=== PATIENT | female | born 1945 | race African-American/Black ===

== ENCOUNTER 2023-10-17 15:48 | Emergency (ER) | payer OTHER, SELFPAY ==
[2023-10-17 15:50] VITALS: BP 128/66
[2023-10-17 16:14] LABS: % Basophils 0.3 % (0-2); % Eosinophils 2.3 % (0-6); % Immature Granulocytes 0.2 % (0-0.5); % Lymphocytes 24.3 % (20.5-51.1); % Monocytes 12.6 % (1.7-9.3); % Neutrophils 60.3 % (42.2-75.2); Absolute Eosinophils 0.2 10^3/uL (0-0.7); Absolute Lymphocytes 2.1 10^3/uL (1.2-3.4); Absolute Monocytes 1.1 10^3/uL (0.1-0.6); Absolute Neutrophils 5.3 10^3/uL (1.4-6.5); Hematocrit 29.2 % (37.0-47.0); Hemoglobin 9.6 g/dL (12.0-16.0); Mean Corp Hgb Conc. 32.9 g/dL (33.0-37.0); Mean Corpuscular Hgb 28.3 pg (27.0-31.0); Mean Corpuscular Volume 86.1 fL (81.0-99.0); Mean Platelet Volume 8.7 fL (7.4-10.4); Nucleated Red Blood Cells % 0 %; Platelet Count 281 10^3/uL (130-400); Red Blood Cell Count 3.39 10^6/uL (4.20-5.40); Red Cell Dist. Width 13.9 % (11.5-14.5); White Blood Cell Count 8.8 10^3/uL (4.8-10.8)
[2023-10-17 16:32] LABS: ALT (SGPT) 20 U/L (0-35); AST (SGOT) 30 U/L (14-36); Albumin 3.7 g/dl (3.5-5.0); Alkaline Phosphatase 92 U/L (38-126); Blood Urea Nitrogen 14 mg/dl (7-17); Calcium 8.4 mg/dl (8.4-10.2); Carbon Dioxide 24 mmol/L (22-30); Chloride 100 mmol/L (98-107); Glucose 111 mg/dl (70-99); Potassium 4.2 mmol/L (3.5-5.1); Sodium 135 mmol/L (135-145); Total Bilirubin 0.4 mg/dl (0.2-1.3); Total Protein 6.4 g/dl (6.3-8.2); eGFR 42.09
--- NOTE | 2023-10-17 18:27 | ED.GENMED ---
History of Present Illness
General
Chief Complaint: Fainting Sensation
Source: patient
Exam Limitations: none
Time Seen by Provider: 10/17/23 17:49
Nursing documentation reviewed up to this point in time: agreed with
Travel History
Have you had any contact with someone who has COVID-19?: No
Do you have any symptoms of coronavirus? Fever > 100 degrees, chills, cough, shortness of breath, sore throat, loss of taste or smell, muscle aches, or headache?: No
History of Present Illness
History of Present Illness:
69-year-old female presents to the ER for evaluation. Patient was brought by EMS. Patient had bilateral knee replacement surgery August 2023 at [facility]. She has been in Physical therapy twice a week since and went to physical therapy
today but did not eat. After therapy she went to [facility] with family while she was getting out of the car at [facility] she felt very hot and while walking around [facility] felt very lightheaded like she was going to pass out. Daughter saw that she
was not feeling well and caught patient prior to patient falling on the ground. Daughter reports patient did not fully lose consciousness she was awake 'but in and out of it .'
patient denies any associated chest pain. She is no cardiac history. She is a diet-controlled diabetic.
She denies any recent illness fever chills.
Patient denies any black stools. She is on Eliquis for bilateral knee replacement.
Family feels that patient was dehydrated and did not eat and with therapy and walk around [facility] had this episode occur.
Patient now feels much better. She has no cardiac history.
She denies any shortness of breath.
Past History
Past History
ED Past Medical History: HTN, Hypercholesterolemia and NIDDM
ED Past Surgical History: Orthopedic (b/l bunionectomy)
Review of Systems
Review of Systems
Allergies reviewed?: Yes
Other source history: family
All Other Systems: ROS reviewed and negative except as documented in HPI and ROS
Constitutional: Reports no symptoms; Denies fever
EENT: Reports no symptoms
Respiratory: Reports no symptoms; Denies trouble breathing
Cardiac: Reports other (near syncope )
ABD/GI: Reports no symptoms; Denies abdominal pain, nausea or vomiting
: Reports no symptoms
Musculoskeletal: Reports no symptoms
Skin: Reports no symptoms
Neurological: Reports no symptoms
Psychiatric: Reports no symptoms
Phy Exam
General Physical Exam
General Presentation: no apparent distress
General age: appears stated age
General Skin: warm and dry
General Habitus: elderly
General Mental: alert
General Hydration: appears well hydrated
Cardiovascular Exam
Cardiovascular Exam: regular rate/rhythm, no murmur and normal peripheral pulses
Pulmonary Exam
Pulmonary Exam: lungs clear and no respiratory distress
Neurological Exam
Neurological Exam: alert and oriented x3
Musculoskeletal Exam
Musculoskeletal Exam: full ROM
Skin Exam
Skin Exam: normal color and warm/dry
Psychiatric Exam
Psychiatric Exam: normal mood/affect
Course
Orders/Labs/Results
Orders:
Orders
10/17/23 15:53
Electrocardiogram (*1) Urgent
Reason for Study: Chest Pain
EKG- Treatment ONCE
10/17/23 16:08
Complete Blood Count/With Diff Urgent
Comprehensive Metabolic Panel Urgent
Abnormal Lab Results
10/17/23
16:08
RBC 3.39 L 10^6/uL
(4.20-5.40)
Hgb 9.6 L g/dL
(12.0-16.0)
Hct 29.2 L %
(37.0-47.0)
MCHC 32.9 L g/dL
(33.0-37.0)
Absolute Monos (auto) 1.1 H 10^3/uL
(0.1-0.6)
Monocytes % 12.6 H %
(1.7-9.3)
Creatinine 1.3 H mg/dL
(0.6-1.0)
Glucose 111 H mg/dl
(70-99)
10/17/23 16:08
10/17/23 16:08
Vital Signs
Initial and Last Documented VS:
Initial Vital Signs
Temp Pulse Resp BP Pulse Ox
98.9 F 70 20 128/66 99
10/17/23 15:50 10/17/23 15:50 10/17/23 15:50 10/17/23 15:50 10/17/23 15:50
Last Documented Vital Signs
Temp Pulse Resp BP Pulse Ox
98.9 F 76 16 124/69 99
10/17/23 15:50 10/17/23 19:43 10/17/23 19:43 10/17/23 19:43 10/17/23 15:50
MDM/Problems Addressed
Differential Diagnosis Includes:
Not limited to near syncope, dehydration
MDM/Problems Addressed:
Patient had near syncopal episode today. Patient did physical therapy today and was walking around [facility] however did not eat and hardly drank today. Patient describes feeling very hot and was aware that she felt lightheaded and was going to
pass out. Family reports she never fully passed out. Patient presents awake alert no acute distress. Patient had blood work done prior to my exam which does show an elevated creatinine 1.3 normal BUN. There are no prior labs.
Patient's hemoglobin is 9.6. She is on Eliquis but denies any black stools. She denies any recent fever chills she is afebrile with a normal white count.
Patient reports she is feeling much better here she had no complaints of chest pain shortness of breath she is in no acute distress. She is on blood thinners status post knee replacement late August/September. She denies any black stools as
documented. I did discuss rectal exam but she declined. She has been eating and drinking here in the ER and feels well after go home. She ambulated with her walker steady. Symptoms are likely from not eating and drinking. Patient was given a
copy of her labs including low hemoglobin mildly elevated creatinine with instructions to follow-up PCP.
Chronic conditions affecting care:
Recent knee replacement end of presently in physical therapy twice a week.
*Pulse Oximetry
Patient hypoxic: no
*EKG
Interpreted by ED Provider?: Yes
Interpretation: normal
Comparison EKG: no comparison EKG present
Heart Rate: 67
Rate: normal
Rhythm: sinus
Ischemia: no ischemia
*Critical Care Note
Total Time (30-74mins, 75-104mins- exclusive of procedures): Not Applicable
ED Attending Note
-
Portions of this chart may have been created with voice recognition software.� Occasional wrong word or��sound alike� substitutions may have occurred due to the inherent limitations of voice recognition software.
Discharge Plan
Departure
Patient Disposition: Home (Routine Discharge)
Date of Disposition: 10/17/23
Time of Disposition: 19:33
Patient with high blood pressure during this ER visit?: Yes
Condition: Fair
Covid-19: Not Applicable
Discharge Problem:
Near syncope
Instructions: Near Fainting (DC)
Referrals:
Corrie Patterson MD [Family Provider] -
Activity Restrictions/Additional Instructions:
stay well-hydrated. Follow-up with your family doctor in the next several days for reevaluation.
Follow-up for reevaluation of your labs. You are mildly anemic with a hemoglobin of 9.6 and your kidney function/creatinine was minimally elevated at 1.3. Please follow-up with your family doctor for this and for repeat labs. Return if any
worsening of symptoms
Interventions
Interventions:
*Risk Screen - Suicide Last Done: 10/17/23 15:50
*General Assessment Last Done: 10/17/23 15:50
*Neglect/Abuse Screening Last Done: 10/17/23 15:50
ED- Cardiac Assessment Last Done: 10/17/23 18:20
ED- Neurological Assessment Last Done: 10/17/23 18:20
Discharge Date and Time
Print Language: NORWEGIAN
[2023-10-17 19:43] VITALS: BP 124/69
== END 2023-10-17 20:08 | disposition home or self-care (01) ==
LOC: EMR 15:48
PROVIDERS: Emergency Medicine; EMERGENCY PHYSICIAN Emergency Medicine; FAMILY PHYSICIAN Internal Medicine
DX: R55 Syncope and collapse (principal); I10 Essential (primary) hypertension; E78.00 Pure hypercholesterolemia, unspecified; E11.9 Type 2 diabetes mellitus without complications; M19.90 Unspecified osteoarthritis, unspecified site; Z96.653 Presence of artificial knee joint, bilateral; Z79.01 Long term (current) use of anticoagulants; Z88.6 Allergy status to analgesic agent; Z91.040 Latex allergy status
CPT/HCPCS: 99283; 80053; 85025; 93005

== ENCOUNTER 2024-03-10 12:22 | Emergency (ER) | payer OTHER, SELFPAY ==
[2024-03-10] VITALS (8 sets, daily range): BP systolic 110–135; BP diastolic 60–74
--- NOTE | 2024-03-10 12:38 | ED.PDOC.TRB ---
ED Provider Triage
<Angela Mendez PA-C - Last Filed: 03/10/24 12:40>
-
A medical screening examination has been initiated by a qualified medical provider. Based on the assessment performed at this time, it has been determined that an emergent medical condition may exist and the patient has been informed that further
medical evaluation and possible additional diagnostic testing may be needed.
HPI: This is a medical evaluation conducted in person to initiate diagnostic evaluation and provide initial therapeutics. Please see further documentation by the treating clinician.
GENERAL: Alert , in no apparent distress
EYE: No visual abnormalities.
NECK: Trachea midline
ENT: No visible abnormalities.
LUNGS: No acute respiratory distress
lungs sound clear
no cough
mild tachypnea
NEUROLOGICAL: Alert and oriented
SKIN: Skin intact. No visible changes.
MUSCULOSKELETAL: Moving extremities normally
PSYCH: Normal and appropriate interaction.
78-year-old female with no history of cardiac disease woke up yesterday feeling fatigued and then began feeling short of breath late last night and then woke up this morning feeling more short of breath. Patient has more exertional dyspnea today
and feels little chest tightness. Patient has no pleuritic chest pain, no leg swelling, no fever or cough.
On very brief screening exam her lungs sound clear but she does appear slightly winded after walking. She has no edema. Will start with screening labs and an EKG which was reviewed and shows no ischemia. Defer additional testing to provider
<EARLINE Sharma - Last Filed: 03/11/24 19:42>
-
A medical screening examination has been initiated by a qualified medical provider. Based on the assessment performed at this time, it has been determined that an emergent medical condition may exist and the patient has been informed that further
medical evaluation and possible additional diagnostic testing may be needed.
HPI: This is a medical evaluation conducted in person to initiate diagnostic evaluation and provide initial therapeutics. Please see further documentation by the treating clinician.
GENERAL: Alert , in no apparent distress
EYE: No visual abnormalities.
NECK: Trachea midline
ENT: No visible abnormalities.
LUNGS: No acute respiratory distress
lungs sound clear
no cough
mild tachypnea
NEUROLOGICAL: Alert and oriented
SKIN: Skin intact. No visible changes.
MUSCULOSKELETAL: Moving extremities normally
PSYCH: Normal and appropriate interaction.
78-year-old female with no history of cardiac disease woke up yesterday feeling fatigued and then began feeling short of breath late last night and then woke up this morning feeling more short of breath. Patient has more exertional dyspnea today
and feels little chest tightness. Patient has no pleuritic chest pain, no leg swelling, no fever or cough.
On very brief screening exam her lungs sound clear but she does appear slightly winded after walking. She has no edema. Will start with screening labs and an EKG which was reviewed and shows no ischemia. Defer additional testing to provider
I evaluated this patient and documented full emergency department evaluation . See chart provided Nhung Ramachandran NP
[2024-03-10 13:05] LABS: % Basophils 0.5 % (0-2); % Immature Granulocytes 0.3 % (0-0.5); % Lymphocytes 29.5 % (20.5-51.1); % Monocytes 10.3 % (1.7-9.3); % Neutrophils 55.4 % (42.2-75.2); Absolute Basophils 0.1 10^3/uL (0-0.2); Absolute Eosinophils 0.4 10^3/uL (0-0.7); Absolute Lymphocytes 2.7 10^3/uL (1.2-3.4); Absolute Neutrophils 5.1 10^3/uL (1.4-6.5); Hematocrit 31.8 % (37.0-47.0); Hemoglobin 10.5 g/dL (12.0-16.0); Mean Corpuscular Hgb 28.6 pg (27.0-31.0); Mean Corpuscular Volume 86.6 fL (81.0-99.0); Nucleated Red Blood Cells % 0 %; Platelet Count 325 10^3/uL (130-400); Red Blood Cell Count 3.67 10^6/uL (4.20-5.40); Red Cell Dist. Width 13.4 % (11.5-14.5); White Blood Cell Count 9.2 10^3/uL (4.8-10.8)
[2024-03-10 13:12] LABS: COVID-19 Antigen Negative (Negative)
[2024-03-10 13:14] LABS: ALT (SGPT) < 10 U/L (0-35); AST (SGOT) 16 U/L (14-36); Alkaline Phosphatase 101 U/L (38-126); Blood Urea Nitrogen 26 mg/dl (7-17); Calcium 9.5 mg/dl (8.4-10.2); Carbon Dioxide 25 mmol/L (22-30); Chloride 107 mmol/L (98-107); Glucose 92 mg/dl (70-99); Potassium 4.8 mmol/L (3.5-5.1); Sodium 144 mmol/L (135-145); Total Bilirubin 0.4 mg/dl (0.2-1.3); Total Protein 6.6 g/dl (6.3-8.2); eGFR 41.83
[2024-03-10 13:26] LABS: NT-proBNP 223 pg/ml; Troponin I < 0.012 ng/ml
--- NOTE | 2024-03-10 15:22 | ED.GENMED ---
History of Present Illness
<EARLINE Sharma - Last Filed: 03/10/24 21:23>
General
Chief Complaint: Chest Pain
Source: patient
Exam Limitations: none
Time Seen by Provider: 03/10/24 15:06
Nursing documentation reviewed up to this point in time: agreed with
History of Present Illness
History of Present Illness:
Patient is a 78-year-old female with past medical history of hypertension hyperlipidemia diet-controlled diabetes presents to the ER for evaluation. She denies any cardiac history. She has no history of stroke no prior history of DVT PE. She
reports yesterday she felt tired and this morning around 8:30 AM noticed chest tightness across her chest. She was sitting and reading at that time. She was a little short of breath. She denies any associated nausea vomiting back pain
diaphoresis. She reports presently she is feeling much better symptoms are gone. She did have blood work done in triage. Cardiac troponin was negative.
Patient denies any associated fever or chills. She denies any lower extremity swelling.
Past History
<EARLINE Sharma - Last Filed: 03/10/24 21:23>
Past History
ED Past Medical History: HTN, Hypercholesterolemia and NIDDM
ED Past Surgical History: Orthopedic (b/l bunionectomy)
Review of Systems
<EARLINE Sharma - Last Filed: 03/10/24 21:23>
Review of Systems
Allergies reviewed?: Yes
All Other Systems: ROS reviewed and negative except as documented in HPI and ROS
Constitutional: Reports no symptoms
EENT: Reports no symptoms
Respiratory: Reports trouble breathing
Cardiac: Reports chest pain (now resolved )
ABD/GI: Reports no symptoms
: Reports no symptoms
Musculoskeletal: Reports no symptoms
Skin: Reports no symptoms
Neurological: Reports no symptoms
Psychiatric: Reports no symptoms
Phy Exam
<EARLINE Sharma - Last Filed: 03/10/24 21:23>
General Physical Exam
General Presentation: no apparent distress
General age: appears stated age
General Skin: warm and dry
General Habitus: normal
General Mental: alert
General Hydration: appears well hydrated
Cardiovascular Exam
Cardiovascular Exam: regular rate/rhythm, no murmur and normal peripheral pulses
Pulmonary Exam
Pulmonary Exam: lungs clear and no respiratory distress
Neurological Exam
Neurological Exam: alert and oriented x3
Musculoskeletal Exam
Musculoskeletal Exam: full ROM
Skin Exam
Skin Exam: normal color and warm/dry
Psychiatric Exam
Psychiatric Exam: normal mood/affect
Scores
<EARLINE Sharma - Last Filed: 03/10/24 21:23>
Heart Score for Chest Pain Patients
STEMI patient?: Not applicable
Course
<EARLINE Sharma - Last Filed: 03/10/24 21:23>
Orders/Labs/Results
Orders:
Orders
03/10/24 12:24
EKG [Electrocardiogram (*1)] Urgent
Reason for Study: Shortness of Breath
EKG- Treatment ONCE
03/10/24 12:43
COVID-19 Antigen Urgent
Source: Nasal Swab
Complete Blood Count/With Diff Urgent
Comprehensive Metabolic Panel Urgent
NT-proBNP Urgent
Troponin I Urgent
03/10/24 15:25
EKG- Treatment ONCE
Chest [CR Chest - 2 Views ] Urgent
Comment:
Reason For Exam: cp
03/10/24 15:26
Electrocardiogram (*1) Stat
Reason for Study: Other
Other Reason for Exam: chest pain
EKG- Treatment ONCE
03/10/24 15:50
Troponin I Urgent
03/10/24 18:54
Electrocardiogram (*1) Urgent
Reason for Study: Other
Other Reason for Exam: repeat EKG, no cp
03/10/24 18:55
EKG- Treatment ONCE
03/10/24 20:17
Troponin I Urgent
Abnormal Lab Results
03/10/24
12:43
RBC 3.67 L 10^6/uL
(4.20-5.40)
Hgb 10.5 L g/dL
(12.0-16.0)
Hct 31.8 L %
(37.0-47.0)
Absolute Monos (auto) 1.0 H 10^3/uL
(0.1-0.6)
Monocytes % 10.3 H %
(1.7-9.3)
BUN 26 H mg/dl
(7-17)
Creatinine 1.3 H mg/dL
(0.6-1.0)
03/10/24 12:43
03/10/24 12:43
Vital Signs
Initial and Last Documented VS:
Initial Vital Signs
Temp Pulse Resp BP Pulse Ox
98.7 F 77 16 131/74 98
03/10/24 12:30 03/10/24 12:30 03/10/24 12:30 03/10/24 12:30 03/10/24 12:30
Last Documented Vital Signs
Temp Pulse Resp BP Pulse Ox
98.7 F 66 20 134/66 98
03/10/24 12:30 03/10/24 21:40 03/10/24 21:40 03/10/24 21:40 03/10/24 21:40
Manager Product Marketing consulted with Physician
Manager Product Marketing consulted with physician?: Yes
Name of Physician Consulted: Jenelle
<Radha Almanzar MD - Last Filed: 03/11/24 14:41>
Orders/Labs/Results
Orders:
Orders
03/10/24 12:24
EKG [Electrocardiogram (*1)] Urgent
Reason for Study: Shortness of Breath
EKG- Treatment ONCE
03/10/24 12:43
COVID-19 Antigen Urgent
Source: Nasal Swab
Complete Blood Count/With Diff Urgent
Comprehensive Metabolic Panel Urgent
NT-proBNP Urgent
Troponin I Urgent
03/10/24 15:25
EKG- Treatment ONCE
Chest [CR Chest - 2 Views ] Urgent
Comment:
Reason For Exam: cp
03/10/24 15:26
Electrocardiogram (*1) Stat
Reason for Study: Other
Other Reason for Exam: chest pain
EKG- Treatment ONCE
03/10/24 15:50
Troponin I Urgent
03/10/24 18:54
Electrocardiogram (*1) Urgent
Reason for Study: Other
Other Reason for Exam: repeat EKG, no cp
03/10/24 18:55
EKG- Treatment ONCE
03/10/24 20:17
Troponin I Urgent
Abnormal Lab Results
03/10/24
12:43
RBC 3.67 L 10^6/uL
(4.20-5.40)
Hgb 10.5 L g/dL
(12.0-16.0)
Hct 31.8 L %
(37.0-47.0)
Absolute Monos (auto) 1.0 H 10^3/uL
(0.1-0.6)
Monocytes % 10.3 H %
(1.7-9.3)
BUN 26 H mg/dl
(7-17)
Creatinine 1.3 H mg/dL
(0.6-1.0)
03/10/24 12:43
03/10/24 12:43
Vital Signs
Initial and Last Documented VS:
Initial Vital Signs
Temp Pulse Resp BP Pulse Ox
98.7 F 77 16 131/74 98
03/10/24 12:30 03/10/24 12:30 03/10/24 12:30 03/10/24 12:30 03/10/24 12:30
Last Documented Vital Signs
Temp Pulse Resp BP Pulse Ox
98.7 F 66 20 134/66 98
03/10/24 12:30 03/10/24 21:40 03/10/24 21:40 03/10/24 21:40 03/10/24 21:40
<EARLINE Sharma - Last Filed: 03/10/24 21:23>
MDM/Problems Addressed
MDM/Problems Addressed:
As documented patient is a 78-year-old female with no cardiac or stroke history presents to the ER for evaluation. Patient had fatigue yesterday and this morning had chest pressure mild shortness of breath. Symptoms have all resolved. She
presents awake alert no acute distress no prior history of DVT PE. She is nontachycardic not hypoxic lungs are clear denies any fever chills she has normal white count. Mild renal insufficiency on labs however creatinine at baseline since October 16,
2023; negative prior troponin and BNP only 223. COVID-negative. Will check chest x-ray and repeat second troponin and EKG however as patient remains asymptomatic in no acute distress will likely DC home on chest pain hotline
1638: Second troponin is minimally elevated the patient remains asymptomatic. Discussed ED physician will repeat troponin in the next 3 hours at 650 pm
Patient has remained chest pain-free with no complaints here in the ER stable vital signs. Patient's third troponin was clotted and needed to be redrawn however unchanged from second cardiac troponin. Second troponin was 0.020 and third is 0.025.
Patient has remained asymptomatic and no acute distress. As discussed with ED physician will DC with chest pain hotline follow-up
Chronic conditions affecting care:
htn high cholesterol
<EARLINE Sharma - Last Filed: 03/10/24 21:23>
*Radiology
Radiology exam reviewed: radiology read reviewed
*Pulse Oximetry
Patient hypoxic: no
*EKG
Interpreted by ED Provider?: Yes
Interpretation: normal
Comparison EKG: no changes
Heart Rate: 72
Rate: normal
Rhythm: sinus
Ischemia: no ischemia
*Critical Care Note
Total Time (30-74mins, 75-104mins- exclusive of procedures): Not Applicable
Data Reviewed
Review of Other/Old Records Reveals: Labs
Source: patient and family
ED Attending Note
<EARLINE Sharma - Last Filed: 03/10/24 21:23>
-
Portions of this chart may have been created with voice recognition software.� Occasional wrong word or��sound alike� substitutions may have occurred due to the inherent limitations of voice recognition software.
<Radha Almanzar MD - Last Filed: 03/11/24 14:41>
ED Attending Note
Patient seen and examined by attending physician: Yes
I performed the substantive portion of visit, reviewed & personally made and approve the management plan that is documented in note by myself or DEMI.: Yes
Discharge Plan
Departure
Patient Disposition: Home (Routine Discharge)
Date of Disposition: 03/10/24
Time of Disposition: 21:17
Patient with high blood pressure during this ER visit?: Yes
Condition: Fair
Covid-19: Not Applicable
Discharge Problem:
Chest pain
Instructions: Chest Pain CBC Follow Up
Referrals:
Corrie Patterson MD [Family Provider] -
Mateo Kirby MD [Active] -
Activity Restrictions/Additional Instructions:
As discussed you were placed on the chest pain hotline which means you should receive a call from the office in the next 1 to 2 days however if you do not please call the office to schedule an appointment soon as possible return if any worsening of
symptoms.
Interventions
Interventions:
*Risk Screen - Suicide Last Done: 03/10/24 12:30
*General Assessment Last Done: 03/10/24 12:30
*Neglect/Abuse Screening Last Done: 03/10/24 12:30
ED- Fall Risk Assessment Last Done: 03/10/24 21:40
*ED COVID-19 Vaccine History Last Done: 03/10/24 17:10
*Nursing Disposition Last Done: 03/10/24 21:40
ED- Cardiac Assessment Last Done: 03/10/24 16:11
Discharge Date and Time
Discharge Date/Time: 03/10/24 21:40
Print Language: [place]
[2024-03-10 20:47] LABS: Troponin I 0.025 ng/ml
== END 2024-03-10 21:40 | disposition home or self-care (01) ==
LOC: EMR 12:22
PROVIDERS: Nurse Practitioner; Physician Assistant; EMERGENCY PHYSICIAN Emergency Medicine; FAMILY PHYSICIAN Internal Medicine
DX: R07.89 Other chest pain (principal); R53.83 Other fatigue; R06.02 Shortness of breath; R53.1 Weakness; Z11.52 Encounter for screening for COVID-19; E78.00 Pure hypercholesterolemia, unspecified; E11.9 Type 2 diabetes mellitus without complications; I10 Essential (primary) hypertension; Z88.6 Allergy status to analgesic agent; Z91.040 Latex allergy status
CPT/HCPCS: 99285; 71046; 80053; 83880; 84484; 85025; 87811; 93005

== ENCOUNTER 2024-10-30 20:37 | Emergency (ER) | payer OTHER, SELFPAY ==
[2024-10-30 20:39] VITALS: BP 156/107
[2024-10-30 20:57] LABS: Glucose - Point of Care 142 mg/dl (70-99)
[2024-10-30 21:15] LABS: % Basophils 0.2 % (0-2); % Eosinophils 0.8 % (0-6); % Immature Granulocytes 0.4 % (0-0.5); % Lymphocytes 5.4 % (20.5-51.1); % Monocytes 6.3 % (1.7-9.3); % Neutrophils 86.9 % (42.2-75.2); Absolute Eosinophils 0.2 10^3/uL (0-0.7); Absolute Immature Granulocytes 0.1 10^3/uL (0-0.05); Absolute Lymphocytes 1.1 10^3/uL (1.2-3.4); Absolute Monocytes 1.3 10^3/uL (0.1-0.6); Absolute Neutrophils 17.3 10^3/uL (1.4-6.5); Hematocrit 36.2 % (37.0-47.0); Hemoglobin 11.9 g/dL (12.0-16.0); Mean Corp Hgb Conc. 32.9 g/dL (33.0-37.0); Mean Corpuscular Hgb 29.1 pg (27.0-31.0); Mean Corpuscular Volume 88.5 fL (81.0-99.0); Mean Platelet Volume 9.3 fL (7.4-10.4); Nucleated Red Blood Cells % 0 %; Platelet Count 302 10^3/uL (130-400); Red Blood Cell Count 4.09 10^6/uL (4.20-5.40); White Blood Cell Count 19.9 10^3/uL (4.8-10.8)
[2024-10-30 21:32] LABS: ALT (SGPT) 13 U/L (0-35); AST (SGOT) 16 U/L (14-36); Albumin 4.6 g/dl (3.5-5.0); Alkaline Phosphatase 113 U/L (38-126); Blood Urea Nitrogen 29 mg/dl (7-17); Calcium 9.4 mg/dl (8.4-10.2); Carbon Dioxide 25 mmol/L (22-30); Chloride 105 mmol/L (98-107); Glucose 143 mg/dl (70-99); Potassium 4.7 mmol/L (3.5-5.1); Sodium 141 mmol/L (135-145); Total Bilirubin 0.4 mg/dl (0.2-1.3); Total Protein 7.2 g/dl (6.3-8.2); eGFR 41.83
[2024-10-30 21:33] LABS: Lipase 91 U/L (23-300)
[2024-10-31] MEDS: ZOFRAN 4 MG IV (00:12)
[2024-10-31] MEDS: NSS 1000 IV (00:12)
[2024-10-31] MEDS: PEPCID 20 MG IV (00:12)
[2024-10-31 00:15] VITALS: BP 143/71
--- NOTE | 2024-10-31 01:54 | ED.GENMED ---
History of Present Illness
General
Chief Complaint: Abdominal Symptoms
Source: patient
Exam Limitations: none
Time Seen by Provider: 10/30/24 23:04
Nursing documentation reviewed up to this point in time: agreed with
History of Present Illness
History of Present Illness:
78-year-old female past ministry of hypertension hyperlipidemia presenting to the emergency department today with concerns of nausea vomiting diarrhea that started earlier today. Denies ongoing abdominal pain otherwise feels much better here since
arrival.
Past History
Past History
ED Past Medical History: HTN, Hypercholesterolemia and NIDDM
ED Past Surgical History: Orthopedic (b/l bunionectomy)
Review of Systems
Review of Systems
Allergies reviewed?: Yes
All Other Systems: ROS reviewed and negative except as documented in HPI and ROS
Phy Exam
Physical Exam
Physical Exam:
GENERAL: Alert , in no apparent distress
EYE: pupils equal and reactive
NECK: Supple, no significant adenopathy.
ENT: o/p clr, mmm.
CARDIAC: Regular rate and rhythm .
LUNGS: Clear breath sounds bilaterally, no acute respiratory distress, no wheezes/rales/rhonchi
ABDOMEN: Soft, without focal tenderness, no r/g, no cvat
NEUROLOGICAL: Alert and oriented, no focal neuro deficits
SKIN: Warm and dry, skin intact.
MUSCULOSKELETAL: No edema, well perfused.
PSYCH: Normal and appropriate interaction.
Course
Orders/Labs/Results
Orders:
Orders
10/30/24 20:38
Electrocardiogram (*1) Urgent
Reason for Study: Abdominal Pain
EKG- Treatment ONCE
10/30/24 21:00
Complete Blood Count/With Diff Urgent
Comprehensive Metabolic Panel Urgent
Lipase Urgent
10/30/24 23:31
0.9% Sodium Chloride 1000 ml [Nss] 1,000 ml IV BOLUS
Famotidine [Pepcid] 20 mg IV NOW STA
Ondansetron Injectable [Zofran] 4 mg IV NOW STA
Abnormal Lab Results
10/30/24 10/30/24
20:55 21:00
WBC 19.9 H 10^3/uL
(4.8-10.8)
RBC 4.09 L 10^6/uL
(4.20-5.40)
Hgb 11.9 L g/dL
(12.0-16.0)
Hct 36.2 L %
(37.0-47.0)
MCHC 32.9 L g/dL
(33.0-37.0)
Abs Immat Gran (auto) 0.1 H 10^3/uL
(0-0.05)
Absolute Neuts (auto) 17.3 H 10^3/uL
(1.4-6.5)
Absolute Lymphs (auto) 1.1 L 10^3/uL
(1.2-3.4)
Absolute Monos (auto) 1.3 H 10^3/uL
(0.1-0.6)
Neutrophils % 86.9 H %
(42.2-75.2)
Lymphocytes % 5.4 L %
(20.5-51.1)
BUN 29 H mg/dl
(7-17)
Creatinine 1.3 H mg/dL
(0.6-1.0)
Glucose 143 H mg/dl
(70-99)
POC Glucose 142 H mg/dl
(70-99)
10/30/24 21:00
10/30/24 21:00
Vital Signs
Initial and Last Documented VS:
Initial Vital Signs
Temp Pulse Resp BP Pulse Ox
98.1 F 88 20 156/107 100
10/30/24 20:39 10/30/24 20:39 10/30/24 20:39 10/30/24 20:39 10/30/24 20:39
Last Documented Vital Signs
Temp Pulse Resp BP Pulse Ox
98.1 F 70 20 143/71 94
10/30/24 20:39 10/31/24 00:15 10/30/24 20:39 10/31/24 00:15 10/31/24 00:15
MDM/Problems Addressed
MDM/Problems Addressed:
78-year-old female presenting to the emergency department today with concerns of nausea vomiting diarrhea starting earlier today. No abdominal pain here vital signs are normal per my assessment. Initial elevated white count of 19.9 but otherwise
no emergent findings on labs. Creatinine elevated but at patient's baseline. Patient with likely stomach bug considering she has nausea vomiting and diarrhea that was abrupt in nature. Significant improvement in symptoms here. Stable for
outpatient management. Return precautions given.
*Critical Care Note
Total Time (30-74mins, 75-104mins- exclusive of procedures): Not Applicable
ED Attending Note
-
Portions of this chart may have been created with voice recognition software.� Occasional wrong word or��sound alike� substitutions may have occurred due to the inherent limitations of voice recognition software.
Discharge Plan
Departure
Patient Disposition: Home (Routine Discharge)
Date of Disposition: 10/31/24
Time of Disposition: 01:55
Patient with high blood pressure during this ER visit?: No
Condition: Good
Covid-19: Not Applicable
Discharge Problem:
Nausea vomiting and diarrhea
Instructions: Nausea and Vomiting, Adult (DC)
Referrals:
Corrie Patterson MD [Family Provider] -
Activity Restrictions/Additional Instructions:
You came to the emergency department today for concerns of nausea vomiting diarrhea. This is likely consistent with a stomach bug. Please drink fluids and return for any worsening, new or concerning symptoms.
Interventions
Interventions:
*Risk Screen - Suicide Last Done: 10/30/24 20:44
*Neglect/Abuse Screening Last Done: 10/30/24 20:44
*ED COVID-19 Vaccine History Last Done: 10/30/24 20:43
Discharge Date and Time
Print Language: [place]
== END 2024-10-31 02:30 | disposition home or self-care (01) ==
LOC: EMR 20:37
PROVIDERS: Student in an Organized Health Care Education/Training Program; EMERGENCY PHYSICIAN Emergency Medicine; FAMILY PHYSICIAN Internal Medicine
DX: R11.2 Nausea with vomiting, unspecified (principal); R19.7 Diarrhea, unspecified; I10 Essential (primary) hypertension; E78.00 Pure hypercholesterolemia, unspecified; E11.9 Type 2 diabetes mellitus without complications; Z88.6 Allergy status to analgesic agent; Z91.040 Latex allergy status
CPT/HCPCS: 99284; 96374; 96375; 96361; 80053; 82962; 83690; 85025; 93005

== ENCOUNTER 2024-11-03 14:02 | Emergency (ER) | payer OTHER, SELFPAY ==
[2024-11-03 14:04] VITALS: BP 138/78
[2024-11-03 14:28] LABS: Hematocrit 35.8 % (37.0-47.0); Hemoglobin 11.6 g/dL (12.0-16.0); Mean Corp Hgb Conc. 32.4 g/dL (33.0-37.0); Mean Corpuscular Hgb 28.7 pg (27.0-31.0); Mean Corpuscular Volume 88.6 fL (81.0-99.0); Platelet Count 298 10^3/uL (130-400); Red Blood Cell Count 4.04 10^6/uL (4.20-5.40); White Blood Cell Count 8.6 10^3/uL (4.8-10.8)
[2024-11-03 14:46] LABS: % Basophils 0.3 % (0-2); % Eosinophils 4.8 % (0-6); % Immature Granulocytes 0.3 % (0-0.5); % Lymphocytes 34.5 % (20.5-51.1); % Monocytes 12.1 % (1.7-9.3); Absolute Eosinophils 0.4 10^3/uL (0-0.7); Absolute Neutrophils 4.1 10^3/uL (1.4-6.5); Nucleated Red Blood Cells % 0 %
[2024-11-03 14:47] LABS: ALT (SGPT) 15 U/L (0-35); AST (SGOT) 19 U/L (14-36); Albumin 3.7 g/dl (3.5-5.0); Alkaline Phosphatase 93 U/L (38-126); Blood Urea Nitrogen 24 mg/dl (7-17); Calcium 9.4 mg/dl (8.4-10.2); Carbon Dioxide 26 mmol/L (22-30); Chloride 108 mmol/L (98-107); Glucose 108 mg/dl (70-99); Lipase 112 U/L (23-300); Potassium 4.6 mmol/L (3.5-5.1); Sodium 143 mmol/L (135-145); Total Bilirubin 0.4 mg/dl (0.2-1.3); Total Protein 6.3 g/dl (6.3-8.2)
[2024-11-03 18:04] VITALS: BMI 38.3
[2024-11-03] MEDS: OMNIPAQUE 50 ML PO (18:10)
[2024-11-03 20:05] VITALS: BP 146/65
[2024-11-03 21:06] VITALS: BP 132/71
--- NOTE | 2024-11-03 22:37 | ED.GENMED ---
History of Present Illness
General
Chief Complaint: Abdominal Pain
Source: patient and family
Exam Limitations: none
Time Seen by Provider: 11/03/24 17:26
Nursing documentation reviewed up to this point in time: agreed with
History of Present Illness
History of Present Illness:
Patient to ED for eval of lower abdominal pain. SHe was seen in ED 3 days ago for same. Reports nausea and diarrhea. No further vomiting. No fever/chills. Brought to ED by family for eval.
Past History
Past History
ED Past Medical History: HTN, Hypercholesterolemia and NIDDM
ED Past Surgical History: Orthopedic (b/l bunionectomy)
Review of Systems
Review of Systems
Allergies reviewed?: Yes
All Other Systems: ROS reviewed and negative except as documented in HPI and ROS
Constitutional: Reports no symptoms
EENT: Reports no symptoms
Respiratory: Reports no symptoms
Cardiac: Reports no symptoms
ABD/GI: Reports abdominal pain (bilateral lower abd. pain)
: Reports no symptoms
Musculoskeletal: Reports no symptoms
Skin: Reports no symptoms
Neurological: Reports no symptoms
Psychiatric: Reports no symptoms
Phy Exam
General Physical Exam
General Presentation: well appearing and no apparent distress
General age: appears stated age
General Skin: warm and dry
General Habitus: normal
Cardiovascular Exam
Cardiovascular Exam: regular rate/rhythm
Pulmonary Exam
Pulmonary Exam: lungs clear, no respiratory distress and chest non tender
Gastrointestinal Exam
Gastrointestinal Exam: normal bowel sounds, soft, no organomegaly, no pulsatile mass, non distended and no cva tenderness
Palpation: left upper quadrant: No tenderness, left lower quadrant: Mild tenderness, right upper quadrant: No tenderness and right lower quadrant: Mild tenderness
Musculoskeletal Exam
Musculoskeletal Exam: full ROM and neuro vasc intact
Skin Exam
Skin Exam: normal color, warm/dry and no rash
Psychiatric Exam
Psychiatric Exam: normal mood/affect
Course
Orders/Labs/Results
Orders:
Orders
11/03/24 14:14
Complete Blood Count/With Diff Urgent
Comprehensive Metabolic Panel Urgent
Lipase Urgent
11/03/24 17:33
Iohexol [Omnipaque] See Protocol PO NOW STA
11/03/24 17:34
CT Abd/pel W Iv And Oral Contr Urgent
Comment:
Reason For Exam: diffuse abd. pain, diarrhea
Abnormal Lab Results
11/03/24
14:14
RBC 4.04 L 10^6/uL
(4.20-5.40)
Hgb 11.6 L g/dL
(12.0-16.0)
Hct 35.8 L %
(37.0-47.0)
MCHC 32.4 L g/dL
(33.0-37.0)
Absolute Monos (auto) 1.0 H 10^3/uL
(0.1-0.6)
Monocytes % 12.1 H %
(1.7-9.3)
Chloride 108 H mmol/L
(98-107)
BUN 24 H mg/dl
(7-17)
Creatinine 1.6 H mg/dL
(0.6-1.0)
Glucose 108 H mg/dl
(70-99)
11/03/24 14:14
11/03/24 14:14
Vital Signs
Initial and Last Documented VS:
Initial Vital Signs
Temp Pulse Resp BP Pulse Ox
97.7 F 58 20 138/78 99
11/03/24 14:04 11/03/24 14:04 11/03/24 14:04 11/03/24 14:04 11/03/24 14:04
Last Documented Vital Signs
Temp Pulse Resp BP Pulse Ox
97.7 F 67 20 132/71 96
11/03/24 14:04 11/03/24 18:07 11/03/24 14:04 11/03/24 21:06 11/03/24 21:45
*Radiology
Radiology exam reviewed: radiology read reviewed
*Pulse Oximetry
Patient hypoxic: no
ED Attending Note
-
Portions of this chart may have been created with voice recognition software.� Occasional wrong word or��sound alike� substitutions may have occurred due to the inherent limitations of voice recognition software.
Discharge Plan
Departure
Patient Disposition: Home (Routine Discharge)
Date of Disposition: 11/03/24
Time of Disposition: 21:50
Patient with high blood pressure during this ER visit?: No
Condition: Good
Covid-19: Not Applicable
Discharge Problem:
Abdominal pain
Instructions: Abdominal Pain
Referrals:
Corrie Patterson MD [Family Provider] - Follow up in 2-3 days
Activity Restrictions/Additional Instructions:
Return to the emergency department for any changes in/worsening of your symptoms.
Interventions
Interventions:
*Risk Screen - Suicide Last Done: 11/03/24 18:07
*General Assessment Last Done: 11/03/24 14:04
*Neglect/Abuse Screening Last Done: 11/03/24 18:07
*ED- Fall Risk Assessment Last Done: 11/03/24 18:05
*ED COVID-19 Vaccine History Last Done: 11/03/24 18:05
*Nursing Disposition Last Done: 11/03/24 21:54
[facility] Assessment Last Done: 11/03/24 18:08
Discharge Date and Time
Discharge Date/Time: 11/03/24 22:06
Print Language: [email or web address]
== END 2024-11-03 22:06 | disposition home or self-care (01) ==
LOC: EMR 14:02
PROVIDERS: Emergency Medicine; EMERGENCY PHYSICIAN Emergency Medicine; FAMILY PHYSICIAN Internal Medicine
DX: R10.30 Lower abdominal pain, unspecified (principal); I10 Essential (primary) hypertension; E78.00 Pure hypercholesterolemia, unspecified; E11.9 Type 2 diabetes mellitus without complications
CPT/HCPCS: 99284; 74177; 80053; 83690; 85025; Q9967